=== PATIENT | female | born 1965 | race Caucasian/White ===

== ENCOUNTER 2016-11-06 09:06 | Emergency (ER) | payer OTHER ==
[2016-11-06 09:19] VITALS: BP 118/60; PULSE 70; TEMP 98; BMI 32.9
[2016-11-06] MEDS ORDERED: KETOROLAC TROMETHAMINE 60 MG/2 ML VIAL IM ONE (09:33)
[2016-11-06] MEDS ORDERED: KETOROLAC TROMETHAMINE 60 MG/2 ML VIAL ONE (09:35)
--- NOTE | 2016-11-06 09:37 | PDOC ---
History of Present Illness - General Chief Complaint: Injury Stated Complaint: FALL Time Seen by Provider: 11/06/16 09:23 History Source: Patient Exam Limitations: No Limitations - History of Present Illness Initial Comments: 11/06/16 09:32 Slipped on ice and fell twisting her left ankle. Is unable to bear weight, called ambulance and brought to hospital. Denies head injury, denies other injuries 11/06/16 11:30 Occurred: reports: just prior to arrival, this morning Severity: reports: moderate Pain Location: reports: lower extremity (left ankle ) Method of Injury: Yes: fall Past History - Travel Traveled outside of the country in the last 30 days: No Close contact w/someone who was outside of country & ill: No - Past Medical History Allergies/Adverse Reactions: Allergies Allergy/AdvReac Type Severity Reaction Status Date / Time No Known Allergies Allergy Verified 11/06/16 09:18 Home Medications: Ambulatory Orders Hydrochlorothiazide [Hctz -] 25 mg PO DAILY #10 tablet 11/06/16 Lisinopril [Prinivil] 10 mg PO DAILY #10 tablet 11/06/16 Oxycodone HCl/Acetaminophen [Percocet 5-325 mg Tablet -] 1 - 2 tab PO Q4H PRN # 20 tablet MDD 4 11/06/16 HTN: Yes - Psycho/Social/Smoking Cessation Hx Suicidal Ideation: No Smoking History: Never smoked Information on smoking cessation initiated: No Hx Alcohol Use: No Drug/Substance Use Hx: No Substance Use Type: None Review of Systems - Review of Systems Able to Perform ROS?: Yes Is the patient limited Guyanese proficient: Yes Constitutional: Yes: Symptoms Reported, See HPI, Malaise HEENTM: No: Symptoms Reported Respiratory: No: Symptoms reported Cardiac (ROS): No: Symptoms Reported ABD/GI: No: Symptoms Reported Musculoskeletal: Yes: Symptoms Reported, See HPI, Joint Pain, Joint Swelling Integumentary: Yes: Symptoms Reported Neurological: Yes: Symptoms reported, See HPI, Paresthesia All Other Systems: Reviewed and Negative *Physical Exam - Vital Signs Last Vital Signs Temp Pulse Resp BP Pulse Ox 98 F 70 17 118/60 100 11/06/16 09:16 11/06/16 09:16 11/06/16 09:16 11/06/16 09:16 11/06/16 09:16 - Physical Exam General Appearance: Yes: Appropriately Dressed, Apparent Distress HEENT: positive: STEPHANIE, Normal ENT Inspection, TMs Normal, Pharynx Normal Neck: positive: Supple. negative: Tender Respiratory/Chest: positive: Lungs Clear, Normal Breath Sounds Gastrointestinal/Abdominal: positive: Soft Musculoskeletal: positive: Normal Inspection, Decreased Range of Motion Extremity: positive: Normal Capillary Refill, Tender (agent with obvious deformity and gross swelling to the distal aspect of her left tibia-fibula and ankle joint. Point tenderness to medial and lateral malleolus, positive squeeze test. Foot is cool but patient states is normal for her, DP and PT pulses are strong. ). 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 Medicated with Toradol and prescribed Percocet for pain management. Crutch walking and instructions given and patient discharged with to follow-up *DC/Admit/Observation/Transfer Diagnosis at time of Disposition: Bimalleolar fracture of left ankle Qualifiers: Encounter type: initial encounter Fracture type: closed Qualified Code(s): S82.842A - Displaced bimalleolar fracture of left lower leg, initial encounter for closed fracture - Discharge Dispostion Disposition: HOME Condition at time of disposition: Stable Admit: No - Prescriptions Prescriptions: Oxycodone HCl/Acetaminophen [Percocet 5-325 mg Tablet -] 1 - 2 tab PO Q4H PRN # 20 tablet MDD 4 PRN Reason: Pain - Referrals Referrals: Doreen Santos [Primary Care Provider] - - Patient Instructions Printed Discharge Instructions: DI for Ankle Fracture Additional Instructions: Rest, ice to area on and off for 15 minutes 4-6 times a day Avoid heavy lifting or exercise until pain and swelling is resolved or until further directed Keep area highly elevated to reduce swelling Use splints/Savage wrap as directed Followup with orthopedist in one to 2 days if not improving, if significantly improved may wait one week for followup with orthopedist May use ibuprofen 2-200 mg tablets every 6 hours as needed for pain - Post Discharge Activity Work/School Note: Back to Work
== END 2016-11-06 10:49 | disposition home or self-care (01) ==
LOC: JERFT 09:06
PROC: 2W3MX1Z Immobilization of Left Lower Extremity using Splint (ICD-10-PCS; principal; 2016-11-06)
DX: S82.842A Displaced bimalleolar fracture of left lower leg, initial encounter for closed fracture (principal); W00.2XXA Other fall from one level to another due to ice and snow, initial encounter; Y93.01 Activity, walking, marching and hiking; Y92.488 Other paved roadways as the place of occurrence of the external cause
CPT/HCPCS: 73610-TC-LT; 73630-TC-LT; 99282-25

== ENCOUNTER 2018-12-14 09:32 | Day surgery (SDC) | payer OTHER ==
[2018-12-13 13:57] VITALS: BMI 36.0
[2018-12-14 11:11] VITALS: TEMP 97.8
[2018-12-14 11:32] VITALS: PULSE 66
[2018-12-14 12:52] VITALS: BP 115/68
--- NOTE | 2018-12-15 10:04 | PATH ---
Surgical Pathology Report Patient Name: RONNIE FLORES [facility]. Rec. #: [id number] /Age/Gender: 1965 (Age: 53) / F Account: [id number] Location: U-ENDOSCOPY Taken: 12/14/2018 Received: 12/14/2018 Reported: 12/15/2018 Physicians: Bernt Mendoza D.O. Specimen(s) Received A: RIGHT COLON POLYP #1 B: CECAL POLYP C: RIGHT COLON POLYP #2 D: SIGMOID E: RECTOSIGMOID Clinical History Colon screening Postoperative diagnosis: Polyps, diverticulosis, hemorrhoids Final Diagnosis A. RIGHT COLON POLYP #1, HOT SNARE POLYPECTOMY: COLONIC POLYP WITH EXTENSIVE THERMAL ARTIFACT OBSCURING HISTOLOGIC DETAIL, WITH AREAS SUGGESTIVE OF SERRATED ARCHITECTURE. NO CARCINOMA IDENTIFIED. B. COLON, CECUM, POLYPECTOMY: COLONIC POLYP WITH SERRATED ARCHITECTURE CONSISTENT WITH HYPERPLASTIC POLYP. C. RIGHT COLON POLYP #2, SNARE POLYPECTOMY: TUBULAR ADENOMA D. COLON, SIGMOID, BIOPSY: COLONIC MUCOSA WITH LYMPHOID AGGREGATE WITHIN LAMINA PROPRIA. NO ADENOMATOUS CHANGE IDENTIFIED. E. COLON, RECTOSIGMOID, BIOPSY: HYPERPLASTIC POLYP Electronically Signed Con Busch M.D. Gross Description A. Received in formalin, labeled "right colon polyp #1" are 2 [place], irregular portions of soft tissue measuring 0.4 and 0.5 cm. in greatest dimension. The specimens are submitted in toto in one cassette. B. Received in formalin, labeled "cecal polyp" is a [place], irregular portion of soft tissue measuring 0.5 cm. in greatest dimension. The specimen is submitted in toto in one cassette. C. Received in formalin, labeled "right colon polyp #2" is a [place], irregular portion of soft tissue measuring 0.3 cm. in greatest dimension. The specimen is submitted in toto in one cassette. D. Received in formalin, labeled "biopsy sigmoid polyp" are 2 [place], irregular portions of soft tissue measuring 0.2 and 0.3 cm. in greatest dimension. The specimens are submitted in toto in one cassette. E. Received in formalin, labeled "biopsy rectosigmoid polyps" are 2 [place], irregular portions of soft tissue averaging 0.3 cm. in greatest dimension. The specimens are submitted in toto in one cassette. DL12/14/2018 saudi12/14/2018
== END 2018-12-14 12:20 | disposition home or self-care (01) ==
LOC: JASU-ENDO 09:32
PROVIDERS: ATTEND Internal Medicine Gastroenterology
PROC: 0DBF8ZX Excision of Right Large Intestine, Via Natural or Artificial Opening Endoscopic, Diagnostic (ICD-10-PCS; 2018-12-14)
PROC: 0DBN8ZX Excision of Sigmoid Colon, Via Natural or Artificial Opening Endoscopic, Diagnostic (ICD-10-PCS; 2018-12-14)
PROC: 0DBH8ZX Excision of Cecum, Via Natural or Artificial Opening Endoscopic, Diagnostic (ICD-10-PCS; principal; 2018-12-14 10:30)
DX: Z12.11 Encounter for screening for malignant neoplasm of colon (principal); D12.0 Benign neoplasm of cecum; D12.7 Benign neoplasm of rectosigmoid junction; K64.8 Other hemorrhoids; K57.30 Diverticulosis of large intestine without perforation or abscess without bleeding; R73.03 Prediabetes; I10 Essential (primary) hypertension
CPT/HCPCS: 88305-TC

== ENCOUNTER 2023-08-08 04:30 | Day surgery (SDC) | payer OTHER ==
[2023-08-04 15:59] VITALS: BMI 33.0
[2023-08-08 09:33] VITALS: TEMP 97.7
[2023-08-08 10:04] VITALS: BP 116/57; PULSE 67; RESP 14
== END 2023-08-08 10:20 | disposition home or self-care (01) ==
LOC: JASU-ENDO 04:30
PROVIDERS: ATTEND Internal Medicine Gastroenterology
PROC: 0DBL8ZX Excision of Transverse Colon, Via Natural or Artificial Opening Endoscopic, Diagnostic (ICD-10-PCS; principal; 2023-08-08 08:45)
DX: Z12.11 Encounter for screening for malignant neoplasm of colon (principal); Z86.010 Personal history of colon polyps; D12.3 Benign neoplasm of transverse colon; K64.8 Other hemorrhoids; K57.30 Diverticulosis of large intestine without perforation or abscess without bleeding
CPT/HCPCS: 88305-TC